=== PATIENT | female | born 1950 | race Caucasian/White ===

== ENCOUNTER → 2016-09-29 | Outpatient (CLI) | payer MEDICARE, OTHER ==
--- NOTE | 2016-09-30 10:52 | MM ---
Reason for exam: screening (asymptomatic). Last mammogram was performed 1 year and 2 months ago. History: Patient is postmenopausal. Family history of breast cancer in aunt at age 60. Benign excisional biopsy of the right breast, 1970. Took hormonal contraceptives for 5 years beginning at age 29. Taking estrogen for 10 years beginning at age 49. Physical Findings: A clinical breast exam by your physician is recommended on an annual basis and results should be correlated with mammographic findings. MG 3D Screening Mammo W/Cad Bilateral CC and MLO view(s) were taken. Prior study comparison: July 31, 2015, bilateral MG screening mammo w CAD. May 26, 2014, bilateral MG screening mammo w CAD. The breast tissue is heterogeneously dense. This may lower the sensitivity of mammography. Finding: There are typically benign round calcifications in both breasts. There is no discrete abnormality. ASSESSMENT: Benign, BI-RAD 2 RECOMMENDATION: Routine screening mammogram of both breasts in 1 year.
== END | disposition home or self-care (01) ==
LOC: RADMAMWWP 07:55
PROVIDERS: ATTEND Family Medicine
DX: Z12.31 Encounter for screening mammogram for malignant neoplasm of breast (principal)
CPT/HCPCS: 77063; G0202

== ENCOUNTER 2017-08-12 10:40 | Observation (INO) | payer MEDICARE, OTHER ==
[2017-08-12] MEDS ORDERED: SODIUM CHLORIDE 0.9% 500 ML IV STA (12:26)
--- NOTE | 2017-08-12 12:30 | ED ---
General Adult HPI - General Chief complaint: Abdominal Pain Stated complaint: POSS CHOLITIS FLARE Source: patient, RN notes reviewed Mode of arrival: ambulatory Limitations: no limitations - History of Present Illness Initial comments: This is a 67-year-old female who presents emergency Department because of rectal bleeding. Patient states it started on Thursday she had another episode today. Patient states she's had colitis in the past. Patient states she's had no abdominal pain just some occasional cramping. Patient denies any rectal pain. Patient denies being on any blood thinners. Patient denies being lightheaded dizzy or having any near syncopal episode. Patient denies any palpitations or shortness of breath. Patient denies chest pain. Patient denies any recent fever chills or cough. Patient denies any nausea vomiting or diarrhea. - Related Data Home Medications Medication Instructions Recorded Confirmed Aspirin EC [Ecotrin Low Dose] 81 mg PO HS 08/12/17 08/12/17 Cholecalciferol (Vitamin D3) 2,000 unit PO DAILY 08/12/17 08/12/17 [Vitamin D3] FLUoxetine HCL [PROzac] 10 mg PO DAILY 08/12/17 08/12/17 LORazepam [Ativan] 0.5 mg PO DAILY PRN 08/12/17 08/12/17 Lisinopril [Zestril] 10 mg PO DAILY 08/12/17 08/12/17 Ipkzreaw-Jnlppzunf-Pcnhccdu 1 applic RIGHT EYE BID 08/12/17 08/12/17 [Maxitrol Ophth Oint] Simvastatin [Zocor] 20 mg PO HS 08/12/17 08/12/17 Vitamin C/Biotin [Hair, Skin and 1 tab PO DAILY 08/12/17 08/12/17 Nails] Allergies Allergy/AdvReac Type Severity Reaction Status Date / Time acetaminophen Allergy Unknown Verified 08/12/17 11:55 [From Darvocet-N] citalopram [From Celexa] Allergy Rash/Hives Verified 08/12/17 11:55 propoxyphene Allergy Unknown Verified 08/12/17 11:55 [From Darvocet-N] Review of Systems ROS Statement: Those systems with pertinent positive or pertinent negative responses have been documented in the HPI. ROS Other: All systems not noted in ROS Statement are negative. Past Medical History Additional Past Medical History / Comment(s): colitis leaky heart valve depression History of Any Multi-Drug Resistant Organisms: None Reported Past Surgical History: No Surgical Hx Reported Past Psychological History: Depression Smoking Status: Never smoker Past Alcohol Use History: Occasional Past Drug Use History: None Reported General Exam - General Exam Comments Initial Comments: GENERAL: Patient is well-developed and well-nourished. Patient is nontoxic and well- hydrated and is in no acute distress. ENT: Neck is soft and supple. No significant lymphadenopathy is noted. Oropharynx is clear. Moist mucous membranes. Neck has full range of motion without eliciting any pain. EYES: The sclera were anicteric and conjunctiva were pink and moist. Extraocular movements were intact and pupils were equal round and reactive to light. Eyelids were unremarkable. PULMONARY: Unlabored respirations. Good breath sounds bilaterally. No audible rales rhonchi or wheezing was noted. CARDIOVASCULAR: There is a regular rate and rhythm without any murmurs gallops or rubs. ABDOMEN: Soft and nontender with normal bowel sounds. No palpable organomegaly was noted. There is no palpable pulsatile mass. SKIN: Skin is clear with no lesions or rashes and otherwise unremarkable. NEUROLOGIC: Patient is alert and oriented x3. Cranial nerves II through XII are grossly intact. Motor and sensory are also intact. Normal speech, volume and content. Symmetrical smile. MUSCULOSKELETAL: Normal extremities with adequate strength and full range of motion. No lower extremity swelling or edema. No calf tenderness. LYMPHATICS: No significant lymphadenopathy is noted PSYCHIATRIC: Normal psychiatric evaluation. Limitations: no limitations Course Vital Signs 08/12/17 10:50 Temperature 98.1 F Pulse Rate 72 Respiratory 18 Rate Blood Pressure 141/90 O2 Sat by Pulse 97 Oximetry Medical Decision Making - Lab Data Result diagrams: 08/12/17 12:14 08/12/17 12:14 Lab Results 08/12/17 08/12/17 08/12/17 Range/Units 12:14 12:14 12:14 WBC 5.2 (3.8-10.6) k/uL RBC 4.98 (3.80-5.40) m/uL Hgb 14.9 (11.4-16.0) gm/dL Hct 45.0 (34.0-46.0) % MCV 90.4 (80.0-100.0) fL MCH 30.0 (25.0-35.0) pg MCHC 33.2 (31.0-37.0) g/dL RDW 13.1 (11.5-15.5) % Plt Count 198 (150-450) k/uL Neutrophils % 55 % Lymphocytes % 34 % Monocytes % 6 % Eosinophils % 2 % Basophils % 1 % Neutrophils # 2.9 (1.3-7.7) k/uL Lymphocytes # 1.7 (1.0-4.8) k/uL Monocytes # 0.3 (0-1.0) k/uL Eosinophils # 0.1 (0-0.7) k/uL Basophils # 0.0 (0-0.2) k/uL PT (9.0-12.0) sec INR (<1.2) APTT (22.0-30.0) sec Sodium 141 (137-145) mmol/L Potassium 4.6 (3.5-5.1) mmol/L Chloride 104 (98-107) mmol/L Carbon Dioxide 26 (22-30) mmol/L Anion Gap 11 mmol/L BUN 9 (7-17) mg/dL Creatinine 0.70 (0.52-1.04) mg/dL Est GFR (MDRD) Af Amer >60 (>60 ml/min/1.73 sqM) Est GFR (MDRD) Non-Af >60 (>60 ml/min/1.73 sqM) Glucose 84 (74-99) mg/dL Calcium 9.6 (8.4-10.2) mg/dL Total Bilirubin 0.6 (0.2-1.3) mg/dL AST 31 (14-36) U/L ALT 28 (9-52) U/L Alkaline Phosphatase 84 (38-126) U/L Total Creatine Kinase 123 (30-135) U/L CK-MB (CK-2) 1.4 (0.0-2.4) ng/mL CK-MB (CK-2) Rel Index 1.1 Troponin I <0.012 (0.000-0.034) ng/mL Total Protein 7.2 (6.3-8.2) g/dL Albumin 4.4 (3.5-5.0) g/dL Blood Type Blood Type Recheck Antibody Screen Spec Expiration Date 08/12/17 08/12/17 Range/Units 12:14 12:14 WBC (3.8-10.6) k/uL RBC (3.80-5.40) m/uL Hgb (11.4-16.0) gm/dL Hct (34.0-46.0) % MCV (80.0-100.0) fL MCH (25.0-35.0) pg MCHC (31.0-37.0) g/dL RDW (11.5-15.5) % Plt Count (150-450) k/uL Neutrophils % % Lymphocytes % % Monocytes % % Eosinophils % % Basophils % % Neutrophils # (1.3-7.7) k/uL Lymphocytes # (1.0-4.8) k/uL Monocytes # (0-1.0) k/uL Eosinophils # (0-0.7) k/uL Basophils # (0-0.2) k/uL PT 10.0 (9.0-12.0) sec INR 1.0 (<1.2) APTT 23.9 (22.0-30.0) sec Sodium (137-145) mmol/L Potassium (3.5-5.1) mmol/L Chloride (98-107) mmol/L Carbon Dioxide (22-30) mmol/L Anion Gap mmol/L BUN (7-17) mg/dL Creatinine (0.52-1.04) mg/dL Est GFR (MDRD) Af Amer (>60 ml/min/1.73 sqM) Est GFR (MDRD) Non-Af (>60 ml/min/1.73 sqM) Glucose (74-99) mg/dL Calcium (8.4-10.2) mg/dL Total Bilirubin (0.2-1.3) mg/dL AST (14-36) U/L ALT (9-52) U/L Alkaline Phosphatase (38-126) U/L Total Creatine Kinase (30-135) U/L CK-MB (CK-2) (0.0-2.4) ng/mL CK-MB (CK-2) Rel Index Troponin I (0.000-0.034) ng/mL Total Protein (6.3-8.2) g/dL Albumin (3.5-5.0) g/dL Blood Type A Positive Blood Type Recheck A Pos Antibody Screen NEGATIVE Spec Expiration Date 08/15/2017 - 2313 Disposition Clinical Impression: GI bleed Disposition: ADMITTED IP TO THIS HOSP Referrals: Jae Pritchett MD [Primary Care Provider] - 1-2 days Time of Disposition: 13:28
[2017-08-12 12:39] LABS: Basophils % (A) 1 %; Eosinophils # (A) 0.1 k/uL (0-0.7); Eosinophils % (A) 2 %; HGB 14.9 gm/dL (11.4-16.0); Lymphocytes # (A) 1.7 k/uL (1.0-4.8); Lymphocytes % (A) 34 %; MCHC 33.2 g/dL (31.0-37.0); MCV 90.4 fL (80.0-100.0); Monocytes # (A) 0.3 k/uL (0-1.0); Monocytes % (A) 6 %; Neutrophils # (A) 2.9 k/uL (1.3-7.7); Neutrophils % (A) 55 %; Platelet Count 198 k/uL (150-450); RBC 4.98 m/uL (3.80-5.40); RDW 13.1 % (11.5-15.5); WBC 5.2 k/uL (3.8-10.6)
[2017-08-12 12:49] LABS: Partial Thromboplastin Time 23.9 sec (22.0-30.0)
[2017-08-12 12:55] LABS: ALT 28 U/L (9-52); AST 31 U/L (14-36); Albumin 4.4 g/dL (3.5-5.0); Alkaline Phosphatase 84 U/L (38-126); Anion Gap 11 mmol/L; Blood Urea Nitrogen 9 mg/dL (7-17); Calcium 9.6 mg/dL (8.4-10.2); Carbon Dioxide 26 mmol/L (22-30); Chloride 104 mmol/L (98-107); Glucose 84 mg/dL (74-99); Potassium 4.6 mmol/L (3.5-5.1); Sodium 141 mmol/L (137-145); Total Bilirubin 0.6 mg/dL (0.2-1.3); Total Protein 7.2 g/dL (6.3-8.2)
[2017-08-12 13:07] LABS: Creatine Kinase 123 U/L (30-135)
[2017-08-12 13:20] LABS: Creatine Kinase MB 1.4 ng/mL (0.0-2.4); Troponin I <0.012 ng/mL (0.000-0.034)
[2017-08-12] MEDS ORDERED: SODIUM CHLORIDE 0.9% 1,000 ML IV ONE (13:35)
[2017-08-12 14:09] LABS: Basophils % (A) 1 %; Eosinophils # (A) 0.1 k/uL (0-0.7); Eosinophils % (A) 1 %; HCT 43.9 % (34.0-46.0); HGB 14.5 gm/dL (11.4-16.0); Lymphocytes # (A) 1.8 k/uL (1.0-4.8); Lymphocytes % (A) 35 %; MCH 30.2 pg (25.0-35.0); MCV 91.4 fL (80.0-100.0); Mean Platelet Volume 6.8; Monocytes # (A) 0.3 k/uL (0-1.0); Monocytes % (A) 5 %; Neutrophils # (A) 2.9 k/uL (1.3-7.7); Neutrophils % (A) 56 %; Platelet Count 203 k/uL (150-450); RBC 4.81 m/uL (3.80-5.40); RDW 13.1 % (11.5-15.5); WBC 5.3 k/uL (3.8-10.6)
[2017-08-12 14:43] VITALS: BMI 33.8
[2017-08-12] MEDS ORDERED: LORazepam 0.5 MG TAB PO PRN (16:11)
[2017-08-12] MEDS: SODIUM CHLORIDE 0.9% 1,000 ML IV SCH (17:11)
--- NOTE | 2017-08-12 17:49 | HP ---
HISTORY AND PHYSICAL CHIEF COMPLAINT: Rectal bleeding. HISTORY OF PRESENT ILLNESS: This 67-year-old woman with a past history of colitis, nephritis, history of depression being followed by Dr. Pritchett in the outpatient setting, previously had GI bleed. Apparently the patient was found to have mild colitis during endoscopies. Currently since Thursday the patient had minimal amount of GI bleed which was bright red in color in the toilet and because of the recurrent symptoms today the patient came to [facility] and was admitted for further evaluation and treatment. Patient has some cramping pain also. The patient also has some diarrhea as well. There is no history of fever, rigors or chills. No history of headache, loss of consciousness, seizures. PAST MEDICAL HISTORY: History of colitis, leaky valve, history of blepharitis, depression. MEDICATIONS: Prior to admission: 1. Vitamin C 1 tab p.o. b.i.d. 2. Maxitrol makes 1 application b.i.d. 3. Ativan 0.5 mg daily p.r.n. 4. Prozac 20 mg daily. 5. Vitamin D3 2000. 6. Ecotrin 81 mg q.h.s. 7. Zocor 20 mg q.h.s. 8. Zestril 10 mg p.o. daily. ALLERGIES: DARVOCET N100. CELEXA. FAMILY HISTORY: No history of heart disease or strokes in the family. SOCIAL HISTORY: No history of smoking. No history of alcohol intake. REVIEW OF SYSTEMS: ENT: No diminished hearing or vision. CARDIOVASCULAR: No angina or palpitations. Respiratory: No cough or hemoptysis. GI no nausea or vomiting. no dysuria. Nervous system: No numbness, weakness. Allergy/Immunology: No asthma or hayfever. Musculoskeletal as mentioned earlier. Hematology/Oncology: No history of anemia. Endocrine: No history of diabetes or hypothyroidism. Constitutional: As mentioned earlier. Dermatology: Negative. Rheumatology: Negative. Psychiatric: As mentioned earlier. PHYSICAL EXAMINATION: The patient is alert and oriented times three. Pulse 55. Blood pressure 154/98, respiration 18, temperature 98 degrees, pulse ox 95% on room air. HEENT: Conjunctivae normal. Neck: No jugular venous distention. CARDIOVASCULAR: S1, S2 muffled. RESPIRATORY: Breath sounds diminished in the bases. No rhonchi and no crackles. ABDOMEN: Soft, nontender. No guarding. No rigidity. No mass palpable. Bowel sounds present. Legs no edema and no swelling. Nervous system: Higher functions as mentioned earlier. Moves all 4 limbs, no focal deficits. Lymphatics: No lymph nodes palpable in the neck, axillae or groin. Skin no ulcer, rash or bleeding. LABS: CBC noted. Hemoglobin is 14.9, The CMP within normal limits. ASSESSMENT: 1. Acute lower bleeding possibly rule out colitis. 2. History of previous colitis. 3. History of leaky heart valve. 4. History of blepharitis. 5. History of depression. RECOMMENDATIONS AND DISCUSSION: In this 67-year-old woman who presented with multiple complex medical issues, we will monitor the patient closely. Continue the current management and symptomatic treatment. We will avoid aspirin. Resume the rest of medications N.p.o. except medications. Otherwise I would recommend continue with current medications. Continue symptomatic treatment. Otherwise at this time repeat labs. Gastroenterology consult with Dr. Shaffer. Guarded prognosis. Further recommendations to follow. MMODL / IJN: [id number] / MTDD
[2017-08-12] MEDS: NEOMYCIN-POLYMYXIN-DEXAMETH OINT 3.5 GM TUBE RIGHT EYE SCH (21:00)
[2017-08-12] MEDS: ATORVASTATIN 10 MG TAB PO SCH (21:00)
[2017-08-13 00:32] LABS: HCT 40.5 % (34.0-46.0); HGB 13.2 gm/dL (11.4-16.0); MCH 29.8 pg (25.0-35.0); MCHC 32.6 g/dL (31.0-37.0); MCV 91.3 fL (80.0-100.0); Platelet Count 179 k/uL (150-450); RBC 4.44 m/uL (3.80-5.40); WBC 5.9 k/uL (3.8-10.6)
[2017-08-13 07:47] LABS: Basophils % (A) 1 %; Eosinophils # (A) 0.1 k/uL (0-0.7); Eosinophils % (A) 2 %; HCT 38.6 % (34.0-46.0); HGB 12.7 gm/dL (11.4-16.0); Lymphocytes # (A) 1.9 k/uL (1.0-4.8); Lymphocytes % (A) 38 %; MCH 30.1 pg (25.0-35.0); MCHC 32.9 g/dL (31.0-37.0); MCV 91.6 fL (80.0-100.0); Mean Platelet Volume 7.2; Monocytes # (A) 0.3 k/uL (0-1.0); Monocytes % (A) 6 %; Neutrophils # (A) 2.6 k/uL (1.3-7.7); Neutrophils % (A) 52 %; Platelet Count 178 k/uL (150-450); RBC 4.22 m/uL (3.80-5.40); RDW 13.1 % (11.5-15.5)
[2017-08-13 08:17] LABS: Anion Gap 11 mmol/L; Blood Urea Nitrogen 9 mg/dL (7-17); Calcium 8.5 mg/dL (8.4-10.2); Carbon Dioxide 24 mmol/L (22-30); Chloride 107 mmol/L (98-107); Glucose 76 mg/dL (74-99); Sodium 142 mmol/L (137-145)
[2017-08-13 08:22] LABS: Potassium 4.2 mmol/L (3.5-5.1)
[2017-08-13] MEDS ORDERED: NON-FORMULARY DRUG (Vitamin C/Biotin [Hair, Skin And Nails] 1 TAB) PO SCH (09:00)
[2017-08-13] MEDS: FLUoxetine HCL 10 MG CAP PO SCH (09:29)
[2017-08-13] MEDS: CHOLECALCIFEROL 1,000 UNIT TAB PO SCH (09:29)
[2017-08-13] MEDS: LISINOPRIL 10 MG TAB PO SCH (09:30)
[2017-08-13] MEDS: NEOMYCIN-POLYMYXIN-DEXAMETH OINT 3.5 GM TUBE RIGHT EYE SCH ×2 (09:31→19:52)
--- NOTE | 2017-08-13 09:41 | P.CONS ---
History of Present Illness - Reason for Consult Consult date: 08/13/17 Abdominal pain and rectal bleeding Requesting physician: Alma Rosa Allen - History of Present Illness 67-year-old female patient Dr. Pritchett with a past medical history of colitis, valvular heart disease, and depression. Patient presented with reports of acute onset of crampy lower abdominal pain associated with 2 moderate size bloody diarrhea bowel movements on Thursday. Thursday she did not pass any bowel movements and tried to be seen in the GI office however she passed about melena yesterday that was blood-tinged but with minimal abdominal discomfort and came to the hospital for further evaluation. Presently she denies abdominal pain. No bowel movement since yesterday. Denies hematemesis or melena. Last colonoscopy to her memory was in 2012. No changes in medications. No alcohol excessive usage of NSAIDs or aspirin. No recent antibiotics. Admission hemoglobin 14.9. MCV 90. White count 5.2. Platelet 198. INR 1.0. BUN 9. Creatinine 0.7. Hemoglobin this morning 12.7. Review of Systems Constitutional: Denies fever, chills, sweats, weight gain, or loss. HEENT: Negative for migraines, blurred vision or loss, earaches, drainage, tinnitus, oral mucosal lesions, dysphagia, or odynophagia. CARDIAC: History of valvular heart disease. Negative for chest pain, arrhythmias, or palpitation. RESPIRATORY: Negative for shortness of breath, hemoptysis, cough, or sputum production. GI: See HPI for pertinent findings. : Negative for hematuria, urgency, frequency, polyuria, or dysuria. GYNc: Denies possibility of . Negative vaginal discharge. MUSCULOSKELETAL: Negative for muscle aches, swelling, arthritis, and arthralgias. NEUROLOGIC: Negative for stroke or TIA. ENDOCRINE: Negative for thyroid problems. SKIN: Negative for rash or itching. PSYCHIATRIC: History of depression. Past Medical History Additional Past Medical History / Comment(s): colitis, leaky heart valve, blephritis History of Any Multi-Drug Resistant Organisms: None Reported Past Surgical History: No Surgical Hx Reported Past Anesthesia/Blood Transfusion Reactions: No Reported Reaction Past Psychological History: Depression Smoking Status: Never smoker Past Alcohol Use History: Occasional Past Drug Use History: None Reported Medications and Allergies Home Medications Medication Instructions Recorded Confirmed Type Aspirin EC [Ecotrin Low Dose] 81 mg PO HS 08/12/17 08/12/17 History Cholecalciferol (Vitamin D3) 2,000 unit PO DAILY 08/12/17 08/12/17 History [Vitamin D3] FLUoxetine HCL [PROzac] 10 mg PO DAILY 08/12/17 08/12/17 History LORazepam [Ativan] 0.5 mg PO DAILY PRN 08/12/17 08/12/17 History Lisinopril [Zestril] 10 mg PO DAILY 08/12/17 08/12/17 History Gqkhaatc-Aabgwxzim-Fsojvvbg 1 applic RIGHT EYE BID 08/12/17 08/12/17 History [Maxitrol Ophth Oint] Simvastatin [Zocor] 20 mg PO HS 08/12/17 08/12/17 History Vitamin C/Biotin [Hair, Skin and 1 tab PO DAILY 08/12/17 08/12/17 History Nails] Allergies Allergy/AdvReac Type Severity Reaction Status Date / Time acetaminophen Allergy Unknown Verified 08/12/17 11:55 [From Darvocet-N] citalopram [From Celexa] Allergy Rash/Hives Verified 08/12/17 11:55 propoxyphene Allergy Unknown Verified 08/12/17 11:55 [From Darvocet-N] Physical Exam Vitals: Vital Signs Temp Pulse Pulse Resp BP BP Pulse Ox 08/13/17 09:36 97.4 F L 61 18 157/76 99 08/13/17 08:00 61 18 08/13/17 07:00 97.8 F 55 L 18 135/82 97 08/13/17 00:00 16 08/12/17 22:32 98.0 F 56 L 16 121/75 96 08/12/17 15:12 65 18 08/12/17 14:44 98 F 65 18 154/89 97 08/12/17 13:28 65 16 137/86 97 08/12/17 10:50 98.1 F 72 18 141/90 97 Intake and Output 08/12/17 08/13/17 08/13/17 22:59 06:59 14:59 Other: Voiding Method Toilet Toilet # Voids 1 2 # Bowel Movements 1 Weight 83.915 kg 83.915 kg Patient Weight 08/14/17 06:59 Weight 83.915 kg General appearance: The patient is alert, oriented, in no acute distress. HET: Head is normocephalic and atraumatic. Pupils are equal and reactive. Oropharynx is clear without lesions. Neck: Supple without lymphadenopathy. Trachea midline. Heart: S1 S2. Regular rate and rhythm. Lungs: No crackles or wheezes are heard. Abdomen: Soft, nontender, nondistended with bowel sounds. No peritoneal signs. No palpable organomegaly or masses. Extremities: Normal skin color and turgor. No cyanosis, rash, ulceration, clubbing, or edema. Radial and pedal pulses are 2/4 bilaterally. Neurological: No focal deficits. Strength and sensation are grossly intact. Results CBC & Chem 7: 08/13/17 07:25 08/13/17 07:25 Assessment and Plan (1) Acute abdominal pain Narrative/Plan: 59-year-old female presents with acute lower crampy abdominal pain associated with bloody diarrhea on Thursday with slow clinical improvement. History of colitis. Suspect possible ischemic colitis possible self limiting infectious colitis possible inflammatory colitis. Current Visit: Yes Status: Acute Code(s): R10.9 - UNSPECIFIED ABDOMINAL PAIN SNOMED Code(s): 401123256 (2) GI bleed Current Visit: Yes Status: Acute Code(s): K92.2 - GASTROINTESTINAL HEMORRHAGE, UNSPECIFIED SNOMED Code(s): 51198981 Plan: 1. Recommend colonoscopy evaluation scheduled for tomorrow. 2. Light diet today. Stool studies. 3. CBC monitoring. The rooms director has discussed the risks, benefits and alternative therapies for the above-mentioned procedure and for both sedation/analgesia as well as necessary blood product administration, if indicated, as they pertain to this patient. The patient has indicated understanding and acceptance of the risks and procedures discussed. Thank you for this kind referral and the opportunity to participate in the care of your patient. This consultation was discussed with Dr. Darling. The impression and plan of care have been directed as dictated.
[2017-08-13] MEDS: SODIUM CHLORIDE 0.9% 1,000 ML IV SCH ×2 (11:57→19:52)
[2017-08-13 13:45] LABS: HCT 38.6 % (34.0-46.0); HGB 12.7 gm/dL (11.4-16.0); MCH 30.1 pg (25.0-35.0); MCHC 32.8 g/dL (31.0-37.0); MCV 91.9 fL (80.0-100.0); Mean Platelet Volume 7.1; Platelet Count 186 k/uL (150-450); RDW 13.1 % (11.5-15.5)
[2017-08-13] MEDS ORDERED: PEG 3350-NA SULF,BICARB,CL/KCL 4,000 ML BOTTLE PO ONE (16:00)
--- NOTE | 2017-08-13 18:03 | PN ---
PROGRESS NOTE DATE OF SERVICE: 08/13/2017. INTERVAL HISTORY: This 67-year-old woman admitted with rectal bleeding, acute gastrointestinal bleeding is being closely monitored. Possibly ischemic colitis is considered. Gastroenterology is planning colonoscopy tomorrow. No chest pain. No palpitations. No fever. EXAM: Alert and oriented times three. Pulse 83. Blood pressure 90/52, respiration 16, temp 99.2, pulse ox 97% on room air. HEENT: Conjunctivae normal. Neck is no jugular venous distention. Cardiovascular: S1, S2 muffled. Respiration: Breath sounds diminished in the bases. No rhonchi. No crackles. Abdomen is soft. Nontender. Legs: No edema. No swelling. Central nervous system: No focal deficits. LABS: CBC within normal limits. ASSESSMENT: 1. History of lower gastrointestinal bleeding, rule out ischemic colitis. 2. History of previous colitis. 3. History of leaky heart valve. 4. History of blepharitis. 5. History of depression. RECOMMENDATIONS AND DISCUSSION: Recommend to continue current medications, continue current management and symptomatic treatment. Otherwise colonoscopy. Hemoglobin is stable. Prognosis guarded. Further recommendations to follow. MMODL / IJN: [id number] /
[2017-08-13] MEDS: ATORVASTATIN 10 MG TAB PO SCH (19:52)
[2017-08-13 20:13] LABS: HGB 12.7 gm/dL (11.4-16.0); MCHC 31.6 g/dL (31.0-37.0); MCV 94.7 fL (80.0-100.0); Mean Platelet Volume 6.7; Platelet Count 186 k/uL (150-450); RBC 4.22 m/uL (3.80-5.40); RDW 13.1 % (11.5-15.5); WBC 5.7 k/uL (3.8-10.6)
[2017-08-13 22:13] VITALS: RESP 18
[2017-08-14 07:32] LABS: Basophils % (A) 1 %; Eosinophils # (A) 0.1 k/uL (0-0.7); Eosinophils % (A) 2 %; HGB 12.9 gm/dL (11.4-16.0); Lymphocytes # (A) 1.6 k/uL (1.0-4.8); Lymphocytes % (A) 33 %; MCH 30.4 pg (25.0-35.0); MCHC 32.3 g/dL (31.0-37.0); MCV 94.1 fL (80.0-100.0); Mean Platelet Volume 7.2; Monocytes # (A) 0.3 k/uL (0-1.0); Monocytes % (A) 6 %; Neutrophils # (A) 2.7 k/uL (1.3-7.7); Neutrophils % (A) 56 %; Platelet Count 185 k/uL (150-450); RBC 4.25 m/uL (3.80-5.40); RDW 13.2 % (11.5-15.5); WBC 4.9 k/uL (3.8-10.6)
[2017-08-14 07:54] LABS: Anion Gap 11 mmol/L; Blood Urea Nitrogen 6 mg/dL (7-17); Calcium 8.8 mg/dL (8.4-10.2); Carbon Dioxide 24 mmol/L (22-30); Chloride 108 mmol/L (98-107); Glucose 85 mg/dL (74-99); Potassium 4.1 mmol/L (3.5-5.1); Sodium 143 mmol/L (137-145)
[2017-08-14 08:48] VITALS: BP 131/84; PULSE 62; TEMP 98
[2017-08-14] MEDS: CHOLECALCIFEROL 1,000 UNIT TAB PO SCH (09:06)
[2017-08-14] MEDS: LISINOPRIL 10 MG TAB PO SCH (09:07)
[2017-08-14] MEDS: NEOMYCIN-POLYMYXIN-DEXAMETH OINT 3.5 GM TUBE RIGHT EYE SCH (09:07)
[2017-08-14] MEDS: FLUoxetine HCL 10 MG CAP PO SCH (09:07)
[2017-08-14] MEDS ORDERED: PROPOFOL 10 MG/ML 20 ML VIAL IV ONE (15:28)
[2017-08-14] MEDS ORDERED: IV FLUID CONTINUATION 250 ML IV ONE (15:30)
--- NOTE | 2017-08-14 16:29 | P.PCN ---
Date of Procedure: 08/14/17 Procedure(s) Performed: Procedure: Colonoscopy and biopsy. Preoperative diagnosis: History of lower GI bleeding. Postoperative diagnosis: 1. Sigmoid diverticulosis with no evidence of acute diverticulitis or strictures. 2. Nonspecific mucosal changes in the proximal sigmoid consistent with resolving colitis. 3. No angiodysplasia, neoplasia or active bleeding noted at the time of this exam. Preparation: GoLYTELY prep. Sedation: Was provided by anesthesia. Brief clinical history: The patient is a 67-year-old female with a past medical history of colitis, valvular heart disease, and depression. Patient presented with reports of acute onset of crampy lower abdominal pain associated with 2 moderate size bloody diarrhea bowel movements five days earlier. 1-2 days later she did not pass any bowel movements and tried to be seen in our office however she passed more dark stools the day of admission that was blood-tinged but with minimal abdominal discomfort and came to the hospital for further evaluation. Denies hematemesis or melena. Last colonoscopy to her memory was in 2012. No changes in medications. No alcohol excessive usage of NSAIDs or aspirin. No recent antibiotics. Admission hemoglobin 14.9. MCV 90. White count 5.2. Platelet 198. INR 1.0. BUN 9. Creatinine 0.7. Hemoglobin this morning 12.9. The details are summarized in the history and physical and dictated consultations and progress notes. Procedure: With the patient on her left lateral decubitus position and after informed consent and adequate sedation, the perianal area was inspected and it did not show any fissures or fistulas. There were no masses felt on digital rectal examination. The Olympus CFQ 160L video colonoscope was then inserted in the rectum in the usual fashion, however, I was not able to pass it safely in the sigmoid and I, therefore, exchanged it for the pediatric colonoscope which I was able to pass to the cecum. I intubated the ileocecal valve and examined the terminal ileum. Other than 2 patches of erythema and submucosal hemorrhage in the proximal sigmoid, the mucosa appeared healthy in the colon and terminal ileum. There were no evidence of angiodysplasia or any polyps or cancer. There were several diverticular orifices seen scattered in the sigmoid with no evidence of acute diverticulitis or strictures. I obtained biopsies in the sigmoid than I retroflexed the endoscope in the rectum before the endoscope was withdrawn. There was no evidence of bleeding noted during this exam. The patient was reassured and I discussed with her . Will allow regular diet. It is likely that this was an episode of infectious/ischemic or self- limited colitis that has resolved spontaneously. Further plans can be made based on her course.
--- NOTE | 2017-08-14 21:24 | DS ---
DISCHARGE SUMMARY FINAL DIAGNOSES: 1. Acute lower bleeding possibly secondary to sigmoid colon colitis. 2. Sigmoid diverticulosis in the colonoscopy. 3. History of previous colitis. 4. History of leaky heart valve. 5. History of blepharitis. 6. History of depression. DISCHARGE DISPOSITION: The patient is being discharged in stable condition with guarded prognosis. HISTORY OF PRESENT ILLNESS: This 67-year-old woman with a past medical history of multiple medical problems was admitted with rectal bleeding. The patient is apparently colitis. Gastroenterology performed endoscopy showed suspicious colitis. Biopsies were taken, which is pending at this time. The results are pending at this time. PHYSICAL EXAMINATION: Vital signs are stable. Cardiovascular: S1, S2 muffled. Abdomen soft. Nervous system: No focal deficits. LABORATORY DATA: Hemoglobin is normal. RECOMMENDATIONS AND DISCUSSION: Recommend to follow up closely in the outpatient with the primary care physician, Dr. Pritchett and as well as Gastroenterology. DISCHARGE ADVICE AND MEDICATIONS: 1. Diet soft bland. 2. Activity limited until followup. 3. Follow up with Dr. Pritchett in 2 to 3 days. 4. Follow up with management information systems director as advised. 5. Vitamin D3 2000 daily. 6. Prozac 10 mg daily. 7. Zestril 10 mg daily. 8. Ativan 0.5 mg daily. 9. Neomycin polymyxin 1 application right. 10.Zocor 20 mg q.h.s. 11.Vitamin C biotin 1 tab p.o. daily. 12.Followup CBC. MMODL / IJN: [id number] /
== END 2017-08-14 17:20 | disposition home or self-care (01) ==
LOC: EC 10:40 → 5MS5E 13:35
PROVIDERS: ADMIT Hospitalist; ATTEND Hospitalist
DX: K92.2 Gastrointestinal hemorrhage, unspecified (principal); K57.31 Diverticulosis of large intestine without perforation or abscess with bleeding; H01.009 Unspecified blepharitis unspecified eye, unspecified eyelid; F32.9 Major depressive disorder, single episode, unspecified; Z88.6 Allergy status to analgesic agent; Z88.5 Allergy status to narcotic agent; Z88.8 Allergy status to other drugs, medicaments and biological substances; Z79.82 Long term (current) use of aspirin; Z79.899 Other long term (current) drug therapy
CPT/HCPCS: 99284; 96360; 36415; 86900; 86901; 88305; 80053; 80048 ×2; 82550; 82553; 84484; 85025 ×3; 85027; 85610; 85730; 86850; 87045; 89055; 87046; 45380; G0378 ×3; J2704

== ENCOUNTER → 2017-10-23 | Outpatient (CLI) | payer MEDICARE, OTHER ==
--- NOTE | 2017-10-26 08:24 | MM ---
Reason for exam: screening (asymptomatic). Last mammogram was performed 1 year and 1 month ago. History: Patient is postmenopausal. Family history of breast cancer in aunt at age 60. Benign excisional biopsy of the right breast, 1970. Took hormonal contraceptives for 5 years beginning at age 29. Took estrogen for 10 years beginning at age 49. Physical Findings: A clinical breast exam by your physician is recommended on an annual basis and results should be correlated with mammographic findings. MG 3D Screening Mammo W/Cad Bilateral CC and MLO view(s) were taken. Prior study comparison: September 29, 2016, bilateral MG 3d screening mammo w/cad. July 31, 2015, bilateral MG screening mammo w CAD. There are scattered fibroglandular densities. There are typically benign round calcifications in the left breast. Asymmetric breast tissue in the left upper aspect, stable There is no discrete abnormality. ASSESSMENT: Benign, BI-RAD 2 RECOMMENDATION: Routine screening mammogram of both breasts in 1 year.
== END | disposition home or self-care (01) ==
LOC: RADMAMWWP 11:06
PROVIDERS: ATTEND Family Medicine
DX: Z12.31 Encounter for screening mammogram for malignant neoplasm of breast (principal)
CPT/HCPCS: 77063; 77067

== ENCOUNTER → 2018-10-29 | Outpatient (CLI) | payer MEDICARE, OTHER ==
--- NOTE | 2018-10-29 13:09 | MR ---
EXAMINATION TYPE: MR shoulder LT wo con DATE OF EXAM: 10/29/2018 12:55 PM COMPARISON: NONE HISTORY: Left shoulder pain TECHNIQUE: Multiplanar multispin echo imaging of the left shoulder was performed. FINDINGS: Rotator cuff : Thickening and heterogeneity of the supraspinatus tendon with intrasubstance tear. No evidence for full-thickness tear at this time. The subscapularis and infraspinatus constituent of the rotator cuff is intact. Bursa: No bursal effusion or thickening is seen. Musculature: There is no muscular tear, contusion, or atrophy. Acromioclavicular joint : Lateral downsloping of the acromion with subacromial spurring resulting in impingement. Osseous structures : There are no fractures or regions of abnormal bone marrow signal intensity. Long biceps tendon : The biceps tendon is normally situated within the bicipital groove. No complete or partial biceps tendon tear is present. Glenohumeral Joint fluid : There is no glenohumeral joint effusion. Cartilage and Bone : No focal hyaline cartilage defects are noted. No Hill-Sachs, reverse Hill-Sachs, or bony Bankart lesions are seen. Labrum : There are no SLAP or soft tissue Bankart lesions. No paralabral cysts are seen. OTHER FINDINGS : none IMPRESSION: 1. Subacromial impingement with chronic tendinopathy supraspinatus tendon and partial intrasubstance tear.
== END ==
LOC: RADMRIMAIN 11:18
PROVIDERS: ATTEND Orthopaedic Surgery
DX: S46.812A Strain of other muscles, fascia and tendons at shoulder and upper arm level, left arm, initial encounter (principal); M75.82 Other shoulder lesions, left shoulder; M25.812 Other specified joint disorders, left shoulder

== ENCOUNTER → 2018-11-10 | Outpatient (CLI) | payer MEDICARE, OTHER ==
[2018-11-10 16:15] LABS: Basophils % (A) 1 %; Eosinophils # (A) 0.1 k/uL (0-0.7); Eosinophils % (A) 2 %; HCT 42.7 % (34.0-46.0); HGB 13.7 gm/dL (11.4-16.0); Lymphocytes # (A) 1.7 k/uL (1.0-4.8); Lymphocytes % (A) 32 %; MCH 29.9 pg (25.0-35.0); MCV 93.2 fL (80.0-100.0); Mean Platelet Volume 6.9; Monocytes # (A) 0.3 k/uL (0-1.0); Monocytes % (A) 6 %; Neutrophils % (A) 57 %; Platelet Count 199 k/uL (150-450); RBC 4.58 m/uL (3.80-5.40); RDW 13.3 % (11.5-15.5); WBC 5.3 k/uL (3.8-10.6)
[2018-11-10 16:23] LABS: Potassium 4.8 mmol/L (3.5-5.1)
== END | disposition home or self-care (01) ==
LOC: LABPAT 14:30
PROVIDERS: ATTEND Orthopaedic Surgery
DX: Z01.812 Encounter for preprocedural laboratory examination (principal); M75.42 Impingement syndrome of left shoulder
CPT/HCPCS: 36415; 80051; 85025

== ENCOUNTER → 2018-11-11 | Outpatient (CLI) | payer MEDICARE, OTHER | END | disposition home or self-care (01) | LOC: LABPAT 09:35 | PROVIDERS: ATTEND Orthopaedic Surgery | DX: Z01.818 Encounter for other preprocedural examination (principal); Z01.812 Encounter for preprocedural laboratory examination; M75.42 Impingement syndrome of left shoulder | CPT/HCPCS: 93005 ==

== ENCOUNTER 2018-11-25 05:50 | Day surgery (SDC) | payer MEDICARE, OTHER ==
[2018-11-22 15:59] VITALS: BMI 32.5
--- NOTE | 2018-11-24 17:27 | HP ---
HISTORY AND PHYSICAL DATE OF SURGERY: 11/25/2018 Princess Caceres is a 68-year-old patient seen with progressive left shoulder pain. We discussed options for treatment. She elected to proceed with arthroscopy. Consent was obtained. PAST MEDICAL HISTORY: 1. Hypertension. 2. Hyperlipidemia. PAST SURGICAL HISTORY: Noncontributory. DAILY MEDICATIONS: 1. Lisinopril. 2. Simvastatin. 3. Aspirin. 4. Fluoxetine. ALLERGIES: DARVOCET. SOCIAL HISTORY: She denies tobacco use. PHYSICAL EVALUATION OF THE LEFT SHOULDER: Flexion is 90 degrees. Abduction is 70 degrees. External rotation is 30 degrees with weakness. There is tenderness along the anterolateral acromion and rotator cuff insertion site. Impingement is positive at 70 degrees. Drop-arm sign is positive. Distal neurovascular exam is intact. RADIOGRAPHS: Radiographs of the left shoulder revealed a type 2 anterior acromion, evidence for acromioclavicular joint osteoarthritis and cystic changes of the greater tuberosity. Left shoulder MRI revealed impingement with partial rotator cuff tear. IMPRESSION: 1. Left shoulder impingement with rotator cuff tear. 2. Hypertension. 3. Hyperlipidemia. PLAN: Left shoulder arthroscopy with subacromial decompression, probable arthroscopic rotator cuff repair and debridement. MMODL / IJN: [id number] /
[~2018-11-25 05:50] MED LIST: DEXAMETHASONE SOD PHOSPHATE 10 MG/ML 1 ML VIAL IV ONE; HYDROmorphone 0.5 MG/0.5 ML SYRINGE IVP PRN; LACTATED RINGERS 1,000 ML IV SCH; LIDOCAINE 1% 20 ML VIAL (10MG/ML) FOR IV START INTRADERMA PRN; MIDAZOLAM 2 MG/2 ML VIAL IV PRN; ONDANSETRON 4 MG/2 ML VIAL IVP ONE; SCOPOLAMINE 1.5MG/72HR PATCH TRANSDERM ONE; ceFAZolin IN SWFI 2 GM/20 ML SYRINGE IVP ONE
[2018-11-25] MEDS ORDERED: DEXAMETHASONE SOD PHOS (MDV) 100 MG/10 ML VIAL ONE (07:25)
[2018-11-25] MEDS ORDERED: PROPOFOL 10 MG/ML 20 ML VIAL IV ONE (07:25)
[2018-11-25] MEDS ORDERED: MIDAZOLAM 2 MG/2 ML VIAL ONE (07:25)
[2018-11-25] MEDS ORDERED: ePHEDrine SULFATE/0.9% NACL/PF 50 MG/5 ML SYRINGE IV ONE (07:25)
[2018-11-25] MEDS ORDERED: SUCCINYLCHOLINE CHLORIDE 100 MG/5 ML SYR IV ONE (07:25)
[2018-11-25] MEDS ORDERED: LIDOCAINE 1% INJ 10MG/ML (20 ML MDV) ONE (07:25)
[2018-11-25] MEDS ORDERED: ROPIVACAINE 5 MG/ML 30 ML VIAL ONE (07:25)
[2018-11-25] MEDS ORDERED: fentaNYL (PF) 50 MCG/ML 2 ML AMP ONE (07:25)
[2018-11-25] MEDS ORDERED: LACTATED RINGERS 1,000 ML IV ONE (08:03)
--- NOTE | 2018-11-25 08:29 | P.ONQ ---
Anesthesiology Proc Note - PNB - Peripheral Nerve Block Performed Left Interscalene Single Time Out Performed: Yes Procedure Start Time: 06:57 Procedure Stop Time: 07:04 Indication: Acute Post-Operative Pain, Requested by physician Sedation Type: Sedate with meaningful contact maintained Preparation: Sterile Dressing Position: Sitting Catheter: None Needle Types: On-Q Needle Size: 50mm (2") Needle Gauge: 21 Technique: Ultrasound Injectate: 0.5% Ropivacaine (see comment for volume) (30 ml + Decadron 10 mg) Blood Aspirated: No Pain Paresthesia on Injection Noted: No Resistance on Injection: Normal Events: Uneventful and Well Tolerated
[2018-11-25 09:10] VITALS: TEMP 97
--- NOTE | 2018-11-25 09:18 | P.OP ---
Date of Procedure: 11/25/18 Preoperative Diagnosis: Left shoulder impingement Postoperative Diagnosis: 1. Left shoulder rotator cuff tear 2. Left shoulder impingement 3. Left shoulder acromioclavicular joint osteoarthritis 4. Left shoulder partial long head biceps tendon tear 5. Left shoulder superficial labral tear 6. 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 Left shoulder arthroscopic rotator cuff repair 2. Left shoulder arthroscopic subacromial decompression 3. Left shoulder arthroscopic Juan J procedure 4. Left shoulder arthroscopic biceps tenotomy 5. Left shoulder arthroscopic debridement labral tear 6. Left shoulder arthroscopic chondroplasty humeral head and glenoid Implants: 15.5 Arthrex swivel lock anchor Anesthesia: GETA, regional (Interscalene block) Surgeon: Cristian Neri Pastry Supervisor #1: James Rojas Estimated Blood Loss (ml): 8 Pathology: none sent Condition: stable Disposition: PACU Indications for Procedure: 68-year-old patient seen progressive left shoulder pain. After having treatment options discussed, she elected to proceed with arthroscopy. Operative Findings: See description of procedure Description of Procedure: Patient underwent an interscalene block by department of anesthesia for postoperative pain management. The patient was then taken to the operative suite. The patient underwent a general anesthetic by the department of anesthesia. The patient was placed into a lateral position and secured. There was appropriate padding of the bony prominence. Left shoulder was then prepped and draped in normal sterile orthopedic fashion. We placed the extremity in 10 pounds of longitudinal traction. A posterior incision was now made for a posterior working portal site. The trocar and cannula were inserted into the glenohumeral joint. Arthroscopy was initiated. Spinal needle was now inserted anteriorly, to ascertain the anterior working portal site. An incision was now made in that area, a trocar was inserted followed by a probe. There was some superficial tearing of the superior and anterior labrum present. There were grade 3 chondral changes of the glenoid fossa and grade 2-3 chondromalacia changes of the humeral head. There were osteochondral tears on both sides. There was some partial tearing of the biceps tendon with hyperemia. I could visualize a rotator cuff tendon tear from the glenohumeral side. I debrided the superficial labral tears down to stable labral tissue. I performed a chondroplasty of the humeral head and glenoid getting down to stable osteochondral tissue. I performed an arthroscopic biceps tenotomy. The residual labrum was stable. The residual osteochondral surface was stable. Instruments now removed from glenohumeral joint. Utilizing the posterior working portal site, the trocar and cannula were inserted into the subacromial space. Arthroscopy initiated. I made an incision 2 fingerbreadths lateral to the acromion. I introduced my trocar followed by my ArthroCare ablator. I now began ablating thick subacromial bursal tissue, which exposed the undersurface of the anterior acromion. There was diminished subacromial space. There was a very prominent anterior acromion. A motorized bur was introduced and a subacromial decompression was performed. I also excised some osteophytes off the inferior aspect of the distal clavicle. The AC joint was visualized and noted to be fairly arthritic. The motorized bur was introduced in the anterior portal site and a Juan J procedure was performed without difficulty, decompressing the AC joint nicely. I turned my attention to the rotator cuff. There was a 1 cm rotator cuff tear. I debrided the margins getting down to stable tendon tissue defect measured 1.5 cm. It was freely mobile over the footprint. I abraded the footprint with a motorized bur. I now with the assistance of Dangelo FRANZ passed 2 everted mattress sutures through good bites of rotator cuff tendon. I now punched a hole in the area footprint for anchor insertion. I now passed all suture limbs through a 5.5 Arthrex anchor. The eyelet was placed into our pre-punch hole. I held it in position while Dangelo FRANZ tension the sutures and introduced the anchor. All residual suture limbs were now clipped. We had good compression of the tendon along the entire footprint. I injected 1 mL Renue intra-articular. Instruments now removed from the portal sites. All portal sites were approximated with nylon suture. Sterile dressings were applied followed by a shoulder sling. James FRANZ assisted in this complex case. The patient was awakened, transferred to a bed, and taken to recovery in stable condition.
[2018-11-25 09:47] VITALS: BP 146/95; PULSE 73; RESP 18
== END 2018-11-25 10:30 | disposition home or self-care (01) ==
LOC: OR 05:50
PROVIDERS: ATTEND Orthopaedic Surgery
DX: M75.102 Unspecified rotator cuff tear or rupture of left shoulder, not specified as traumatic (principal); M75.42 Impingement syndrome of left shoulder; M19.012 Primary osteoarthritis, left shoulder; S46.112A Strain of muscle, fascia and tendon of long head of biceps, left arm, initial encounter; X58.XXXA Exposure to other specified factors, initial encounter; S43.432A Superior glenoid labrum lesion of left shoulder, initial encounter; M94.212 Chondromalacia, left shoulder; M25.712 Osteophyte, left shoulder; I10 Essential (primary) hypertension; E78.5 Hyperlipidemia, unspecified; F39 Unspecified mood [affective] disorder; K21.9 Gastro-esophageal reflux disease without esophagitis; Z79.82 Long term (current) use of aspirin; Z79.899 Other long term (current) drug therapy; Z88.5 Allergy status to narcotic agent; Z88.6 Allergy status to analgesic agent; Z88.8 Allergy status to other drugs, medicaments and biological substances
CPT/HCPCS: 64415; 29826; 29827; 29824; C1713; C1765; J2250; J1100 ×2; J2405; J2001; J3010; J2795; J0330; J2704; J0690

== ENCOUNTER → 2019-07-22 | Outpatient (CLI) | payer MEDICARE, OTHER ==
--- NOTE | 2019-07-22 10:16 | BD ---
EXAMINATION TYPE: Axial Bone Density DATE OF EXAM: 07/22/2019 COMPARISON: NONE CLINICAL HISTORY: Z 78.0 Height: 5 FT 1 1/2 IN Weight: 190 FRAX RISK QUESTIONS: Alcohol (3 or more units per day): NO Family History (Parent hip fracture): NO Glucocorticoids (More than 3mos): NO (Ex: prednisone, prednisolone, methylprednisolone, dexamethasone, and hydrocortisone). History of Fracture in Adulthood: NO Secondary Osteoporosis: 1. Type 1 Diabetes: NO 2. Hyperthyroidism: NO 3. Menopause before 45: YES 4. Malnutrition: NO 5. Chronic liver disease: FATTY LIVER Rheumatoid Arthritis: NO Current Tobacco Use: NO RISK FACTORS HISTORY OF: Active: YES Postmenopausal woman: AGE 39 Take estrogen and/or progesterone medications: UNSURE MEDICATIONS: Additional Medications: SIMVASTATIN, LISINOPRIL, PROZAC, VIT D Additional History: EXAM MEASUREMENTS: Bone mineral densitometry was performed using the Nexio System. Bone mineral density as measured about the Lumbar spine is: ----- L1-L4(G/cm2): 1.401 T Score Values are as follows: ----- L2: 0.8 ----- L3: 2.2 ----- L4: 2.8 ----- L1-L4: 1.8 Bone mineral density has: DECREASED -1.6 % since study of: 2014 Bone mineral density about the R hip (g/cm2): 1.127 Bone mineral density about the L hip (g/cm2): 1.016 T Score values are as follows: -----R Neck: 0.6 -----L Neck: -0.2 -----R Total: 1.1 -----L Total: 0.7 Bone mineral density has: DECREASED -2.5 % since study of: 2014 IMPRESSION: Normal (Values between +1 and -1 indicate normal bone mass). Consider repeating this study in 5 year s or sooner if there is some new clinical indication. NOTE: T-SCORE=SD OF THE YOUNG ADULT MEAN.
--- NOTE | 2019-07-25 11:41 | MM ---
Reason for exam: screening (asymptomatic). Last mammogram was performed 1 year and 9 months ago. History: Patient is postmenopausal. Family history of breast cancer in aunt at age 60. Benign excisional biopsy of the right breast, 1970. Took hormonal contraceptives for 5 years beginning at age 29. Took estrogen for 10 years beginning at age 49. Physical Findings: A clinical breast exam by your physician is recommended on an annual basis and results should be correlated with mammographic findings. MG 3D Screening Mammo W/Cad Bilateral CC and MLO view(s) were taken. Prior study comparison: October 23, 2017, bilateral MG 3d screening mammo w/cad. September 29, 2016, bilateral MG 3d screening mammo w/cad. The breast tissue is heterogeneously dense. This may lower the sensitivity of mammography. No suspicious abnormality. No significant changes when compared with prior studies. ASSESSMENT: Negative, BI-RAD 1 RECOMMENDATION: Routine screening mammogram of both breasts in 1 year.
== END | disposition home or self-care (01) ==
LOC: RADMAMWWP 07:42
PROVIDERS: ATTEND Family Medicine
DX: Z12.31 Encounter for screening mammogram for malignant neoplasm of breast (principal); Z78.0 Asymptomatic menopausal state
CPT/HCPCS: 77063; 77067; 77080

== ENCOUNTER → 2020-09-18 | Outpatient (CLI) | payer MEDICARE, OTHER ==
--- NOTE | 2020-09-19 14:44 | MM ---
Reason for exam: screening (asymptomatic). Last mammogram was performed 1 year and 2 months ago. History: Patient is postmenopausal. Family history of breast cancer in aunt at age 60. Benign excisional biopsy of the right breast, 1970. Took hormonal contraceptives for 5 years beginning at age 29. Took estrogen for 10 years beginning at age 49. Physical Findings: A clinical breast exam by your physician is recommended on an annual basis and results should be correlated with mammographic findings. MG 3D Screening Mammo W/Cad Bilateral CC and MLO view(s) were taken. Prior study comparison: July 22, 2019, bilateral MG 3d screening mammo w/cad. October 23, 2017, bilateral MG 3d screening mammo w/cad. The breast tissue is heterogeneously dense. This may lower the sensitivity of mammography. Stable benign calcifications. There is no discrete abnormality. No significant changes when compared with prior studies. ASSESSMENT: Benign, BI-RAD 2 RECOMMENDATION: Routine screening mammogram of both breasts in 1 year.
== END | disposition home or self-care (01) ==
LOC: RADMAMWWP 09:43
PROVIDERS: ATTEND Family Medicine
DX: Z12.31 Encounter for screening mammogram for malignant neoplasm of breast (principal); Z78.0 Asymptomatic menopausal state; Z80.3 Family history of malignant neoplasm of breast
CPT/HCPCS: 77063; 77067

== ENCOUNTER → 2022-01-21 | Outpatient (CLI) | payer MEDICARE, OTHER ==
--- NOTE | 2022-01-22 11:38 | MM ---
Reason for Exam: Screening (asymptomatic). Last mammogram was performed 1 year(s) and 5 month(s) ago. Patient History: Menarche at age 10. First Full-Term at age 19. Postmenopausal. Estrogen, starting at age 49 for 10 years. Hormonal Contraceptives for 5 years from age 29 until age 34. 1970, Benign Excisional Biopsy on the right side. Maternal aunt had breast cancer, age 60. Risk Values: Anne 5 year model risk: 2.0%. NCI Lifetime model risk: 5.3%. Prior Study Comparison: 10/23/2017 Bilateral Screening Mammogram, [facility]. 07/22/2019 Bilateral Screening Mammogram, [facility]. 09/18/2020 Bilateral Screening Mammogram, [facility]. Tissue Density: The breast tissue is heterogeneously dense. This may lower the sensitivity of mammography. Findings: Analyzed By CAD. Benign punctate calcifications are scattered bilaterally. No suspicious groups of microcalcifications, spiculated or lobular masses, architectural distortion or other secondary signs of malignancy are mammographically apparent. Overall Assessment: Benign, BI-RAD 2 Management: Screening Mammogram of both breasts in 1 year. A negative mammogram report should not preclude additional follow up of suspicious palpable abnormalities. Patient should continue monthly self breast exam. A clinical breast exam by your physician is recommended on an annual basis and results should be correlated with mammographic findings. Electronically signed and approved by: Harris Mcgee D.O. Radiologis
--- NOTE | 2022-01-22 19:21 | BD ---
EXAMINATION TYPE: Axial Bone Density DATE OF EXAM: 01/21/2022 CLINICAL HISTORY: 71 years year old Female. ICD-10 CODE: M89.9 DISORDER OF BONE Height: 5 FT 1 1/2 IN Weight: 177 FRAX RISK QUESTIONS: Alcohol (3 or more units per day): NO Family History (Parent hip fracture): NO Glucocorticoids (More than 3mos): NO (Ex: prednisone, prednisolone, methylprednisolone, dexamethasone, and hydrocortisone). History of Fracture in Adulthood: NO Secondary Osteoporosis: 1. Type 1 Diabetes: NO 2. Hyperthyroidism: NO 3. Menopause before 45: YES 4. Malnutrition: NO 5. Chronic liver disease: NO Rheumatoid Arthritis: NO Current Tobacco Use: NO RISK FACTORS HISTORY OF: Surgery to Spine/Hip(right/left)/Wrist (right/left): NO Family History of Osteoporosis: NO Active: YES Diet low in dairy products/other sources of calcium: NO Postmenopausal woman: YES Take estrogen and/or progesterone medications: UNSURE Lost more than 2 inches in height since high school: UNSURE Frequent falls: NO Poor Health: GOOD Hyperparathyroidism: NO Adrenal Insufficiency: NO MEDICATIONS: Additional Medications: LISINOPRIL, SIMVASTATIN, ZOLOFT , XANAX NEEDED Additional History: EXAM MEASUREMENTS: Bone mineral densitometry was performed using the Gremln System. Bone mineral density as measured about the Lumbar spine is: ----- L1-L4(G/cm2): 1.419 T Score Values are as follows: ----- L1: 0.5 ----- L2: 1.2 ----- L3: 2.6 ----- L4: 3.1 ----- L1-L4: 2.0 Bone mineral density has: INCREASED 1.0 % since study of: 2014 Bone mineral density about the R hip (g/cm2): 1.113 Bone mineral density about the L hip (g/cm2): 1.050 T Score values are as follows: -----R Neck: 0.5 -----L Neck: 0.1 -----R Total: 0.8 -----L Total: 0.8 Bone mineral density has: DECREASED -3.6 % since study of: 2014 FRAX%s: The graph provided illustrates a 6.8 % chance for a major osteoporotic fx and a 0.4 % chance for the hips probability for fx in 10 years time. IMPRESSION: Normal (Values between +1 and -1 indicate normal bone mass). Consider repeating this study in 5 year s or sooner if there is some new clinical indication. NOTE: T-SCORE=SD OF THE YOUNG ADULT MEAN.
== END | disposition home or self-care (01) ==
LOC: RADMAMWWP 15:09
PROVIDERS: ATTEND Family Medicine
DX: Z12.31 Encounter for screening mammogram for malignant neoplasm of breast (principal); M89.9 Disorder of bone, unspecified
CPT/HCPCS: 77063; 77067; 77080

== ENCOUNTER → 2023-01-26 | Outpatient (CLI) | payer MEDICARE ==
--- NOTE | 2023-01-27 08:55 | MM ---
Reason for Exam: Screening (asymptomatic). Last screening mammogram was performed 12 month(s) ago. Patient History: Menarche at age 10. First Full-Term at age 19. Postmenopausal. Estrogen, starting at age 49 for 10 years. Hormonal Contraceptives for 5 years from age 29 until age 34. 1970, Benign Excisional Biopsy on the right side. Maternal aunt had breast cancer, age 60. Risk Values: Anne 5 year model risk: 2.1%. NCI Lifetime model risk: 5.0%. Prior Study Comparison: 07/22/2019 Bilateral Screening Mammogram, [facility]. 09/18/2020 Bilateral Screening Mammogram, [facility]. 01/21/2022 Bilateral MG 3D screening mammo w/cad, [facility]. Tissue Density: The breast tissue is heterogeneously dense. This may lower the sensitivity of mammography. Findings: Analyzed By CAD. There is no suspicious group of microcalcifications or new suspicious mass in either breast. Overall Assessment: Negative, BI-RAD 1 Management: Screening Mammogram of both breasts in 1 year. . Patient should continue monthly self-breast exams. A clinical breast exam by your physician is recommended on an annual basis. This exam should not preclude additional follow-up of suspicious palpable abnormalities. Note on Anne scores and lifetime risk: 1. A Anne score greater than 3% is considered moderate risk. If this is the case, consider specialist referral to assess eligibility for a risk reducing agent. 2. If overall lifetime risk for the development of breast cancer is 20% or higher, the patient may qualify for future screening with alternating mammogram and breast MRI. Electronically signed and approved by: Washington Carbone M.D. Radiologis
== END | disposition home or self-care (01) ==
LOC: RADMAMWWP 09:36
PROVIDERS: ATTEND Obstetrics & Gynecology
DX: Z12.31 Encounter for screening mammogram for malignant neoplasm of breast (principal); Z78.0 Asymptomatic menopausal state; Z80.3 Family history of malignant neoplasm of breast
CPT/HCPCS: 77063; 77067

== ENCOUNTER → 2024-03-01 | Outpatient (CLI) | payer MEDICARE ==
--- NOTE | 2024-03-02 11:00 | MM ---
Reason for Exam: Screening (asymptomatic). Last mammogram was performed 1 year(s) and 1 month(s) ago. Patient History: Menarche at age 10. First Full-Term at age 19. Postmenopausal. Estrogen, starting at age 49 for 10 years. Hormonal Contraceptives for 5 years from age 29 until age 34. 1970, Benign Excisional Biopsy on the right side. Maternal aunt had breast cancer, age 60. Risk Values: Anne 5 year model risk: 2.1%. NCI Lifetime model risk: 4.7%. Prior Study Comparison: 09/18/2020 Bilateral Screening Mammogram, [facility]. 01/21/2022 Bilateral MG 3D screening mammo w/cad, [facility]. 01/26/2023 Bilateral MG 3D screening mammo w/cad, [facility]. Tissue Density: The breasts are heterogeneously dense, which may obscure small masses. Findings: Analyzed By CAD. There is no suspicious group of microcalcifications or new suspicious mass in either breast. Overall Assessment: Negative, BI-RAD 1 Management: Screening Mammogram of both breasts in 1 year. . Patient should continue monthly self-breast exams. A clinical breast exam by your physician is recommended on an annual basis. This exam should not preclude additional follow-up of suspicious palpable abnormalities. Note on Anne scores and lifetime risk: 1. A Anne score greater than 3% is considered moderate risk. If this is the case, consider specialist referral to assess eligibility for a risk reducing agent. 2. If overall lifetime risk for the development of breast cancer is 20% or higher, the patient may qualify for future screening with alternating mammogram and breast MRI. Electronically signed and approved by: Washington Carbone M.D. Radiologis
== END | disposition home or self-care (01) ==
LOC: RADMAMWWP 12:57
PROVIDERS: ATTEND Family Medicine
DX: Z12.31 Encounter for screening mammogram for malignant neoplasm of breast
CPT/HCPCS: 77063; 77067

== ENCOUNTER 2024-06-08 08:32 | Day surgery (SDC) | payer MEDICARE ==
[2024-06-08] MEDS: IV FLUID CONTINUATION 1,000 ML IV ONE (08:55)
[2024-06-08 09:11] VITALS: TEMP 97.5
[2024-06-08] MEDS: LACTATED RINGERS 1,000 ML IV SCH (09:11)
[2024-06-08] MEDS ORDERED: LIDOCAINE 1% INJ 10MG/ML (20 ML MDV) ONE (09:45)
[2024-06-08] MEDS ORDERED: PROPOFOL 10 MG/ML 20 ML VIAL IV ONE (09:45)
--- NOTE | 2024-06-08 10:07 | P.PCN ---
Date of Procedure: 06/08/24 Procedure(s) Performed: Brief history: Patient is a pleasant 74-year-old white female scheduled for an elective upper endoscopy as well as colonoscopy as a part of evaluation of abdominal pain, GERD, chronic diarrhea and weight loss of 20 pounds in the last 3 months duration Procedure performed: Esophagogastroduodenoscopy biopsy Colonoscopy biopsy Preoperative diagnosis: GERD Abdominal pain and chronic diarrhea Progressive weight loss Anesthesia: MAC Procedure: After informed consent was obtained from the patient was brought into the endoscopy unit and IV sedation was administered by anesthesia under continuous monitoring. Initially upper endoscopy was done. The Olympus GF 160 video endoscope was inserted inserted into the mouth and esophagus intubated without any difficulty and was gradually advanced into the stomach and duodenum and carefully examined. The bulb and second part of the duodenum and multiple small superficial erosions or ulcerations and biopsies were done from this area. . The scope was then withdrawn into the stomach adequately insufflated with air and upon careful examination the antrum had linear areas of erythema consistent with gastritis and biopsies were done from this area. body, cardia and fundus appeared normal. The scope was then withdrawn into the esophagus. The GE junction was located at 40 cm to the incisors. It appeared regular with no erythema erosions or ulcerations. Rest of the esophagus appeared normal. Patient tolerated the procedure well. At this time the patient continued to remain sedation. Initial digital rectal examination was normal. Olympus CF 160 video colonoscope was then inserted into the rectum and gradually advanced to the sigmoid colon and further advancement was not possible because of acute angulation in this area. The scope was removed and a pediatric colonoscopy was administered to the rectum and gradually advanced into the cecum without any difficulty. Careful examination was performed as the scope was gradually being withdrawn. The prep was excellent. The cecum, ascending colon, transverse colon, descending colon, sigmoid colon and rectum appeared normal. Biopsies were done from the ascending and descending colon to rule out microscopic/collagenous colitis. Retroflexion was performed in the rectum and no lesions were noted. Patient tolerated the procedure well. Impression: 1. Upper endoscopy revealed mild antral gastritis and multiple small duodenal erosions or ulcerations s/p biopsy 2. Colonoscopy revealed scattered sigmoid diverticulosis but no evidence of colitis or colorectal neoplasia Recommendations: Findings of this examination were discussed with the patient as well as family. She was advised to follow-up with the biopsy results. She will be seen in the office in 2 weeks.
[2024-06-08 10:37] VITALS: BP 127/77; PULSE 60; RESP 20
== END 2024-06-08 10:43 | disposition home or self-care (01) ==
LOC: ORWHC2ENDO 08:32
PROVIDERS: ATTEND Internal Medicine Gastroenterology
DX: K29.50 Unspecified chronic gastritis without bleeding (principal); K21.9 Gastro-esophageal reflux disease without esophagitis; K29.80 Duodenitis without bleeding; K57.30 Diverticulosis of large intestine without perforation or abscess without bleeding; K26.9 Duodenal ulcer, unspecified as acute or chronic, without hemorrhage or perforation; K52.9 Noninfective gastroenteritis and colitis, unspecified; I10 Essential (primary) hypertension; E78.5 Hyperlipidemia, unspecified; M19.90 Unspecified osteoarthritis, unspecified site; F32.A Depression, unspecified; Z88.6 Allergy status to analgesic agent; Z88.8 Allergy status to other drugs, medicaments and biological substances; Z88.5 Allergy status to narcotic agent; Z79.899 Other long term (current) drug therapy; Z98.890 Other specified postprocedural states
CPT/HCPCS: 45380; 43239; J2003; J2704; 88305